=== PATIENT | male | born 1955 | race Caucasian/White ===

== ENCOUNTER 2024-10-12 16:14 | Emergency (ER) | payer MEDICARE, BC, SELFPAY ==
[2024-10-12] VITALS (11 sets, daily range): BP systolic 123–137; BP diastolic 74–83; PULSE 64–76; RESP 13–29; TEMP 36.2; O2SAT 91–97; BMI 41.5
--- NOTE | 2024-10-12 16:31 | ED.CHESTPAIN ---
HPI - Chest Pain General Chief Complaint: Chest Pain Stated Complaint: tightness in chest/shortness of breath Time Seen by Provider: 10/12/24 16:28 History of Present Illness HPI narrative: This 69-year-old male comes in reporting chest pain on and off over the past 3 or 4 months. He states that the pain is reproducible with exertion usually. He states if he walks far enough for ambulates up stairs he typically will feel some chest tightness and shortness of breath. He also states that he has episodes lasting a few minutes where he has the same symptoms despite exertion. 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 He states that he has been doing well since then up until about 4 months ago when he began having these symptoms. He did make a clinic appointment today but was sent here because of chest pain. He has not had any chest pain today however and currently is not having any symptoms. He does take a baby aspirin in the evening and is taking metoprolol and a cholesterol medicine. He does not report any nausea, vomiting, lightheadedness, or diaphoresis. Related Data Home Medications ?Medication ?Instructions ?Recorded ?Confirmed allopurinol 300 mg tablet 300 mg PO DAILY 10/12/24 10/12/24 aspirin 81 mg tablet 81 mg PO DAILY 10/12/24 10/12/24 atorvastatin 80 mg tablet 80 mg PO DAILY 10/12/24 10/12/24 cetirizine 10 mg tablet (Aller-Kaya) 10 mg PO DAILY PRN 10/12/24 10/12/24 metoprolol tartrate 25 mg tablet 25 mg PO DAILY 10/12/24 10/12/24 Previous Rx's ?Medication ?Instructions ?Recorded isosorbide mononitrate 30 mg 30 mg PO DAILY #30 tabs 10/12/24 tablet,extended release 24 hr Allergies Allergy/AdvReac Type Severity Reaction Status Date / Time Penicillins Allergy Intermediate Hives Verified 10/12/24 16:19 Review of Systems Status of ROS Reports: 10 or more systems reviewed and unremarkable except as noted in History and below Narrative Constitutional: No fevers, no weight gain or loss. Eyes: No discharge. No vision changes. HENT: No congestion, no sore throat, no ear pain. Cardiovascular: No palpitations. Chest tightness usually with exertion and sometimes independent of exertion. Respiratory: No wheezes, no cough. He feels short of breath at times when he is having chest tightness and pain. Gastrointestinal: No abdominal pain, no vomiting, no diarrhea. Genitourinary: No dysuria, no hematuria. Musculoskeletal: Normal range of motion. Skin: No rashes, no pruritis. Neurological: No dizziness, weakness, sensory change, speech change. Endo/Heme/Allergies: No bruising or bleeding. No polydipsia. Pysch: no suicidality, no anxiety, no insomnia. All other systems reviewed and are negative. Exam Narrative Exam Narrative: Constitutional: Well-developed, well-nourished, no acute distress. HEENT: Normocephalic, atraumatic. Neck: Normal range of motion. Nontender. Supple. Heart: Regular. No murmurs. Normal rate. Intact distal pulses. Lungs: Clear to auscultation. No chest discomfort. No wheezes, rhonchi, or rales. Abdomen: Normal bowel sounds. Nontender. No rebound tenderness. Genitalia: Deferred. Back: No midline tenderness. Normal range of motion. Extremities: Normal range of motion. No injury. Skin: Intact. No rash. Warm. No erythema or pallor. Neurologic: No altered sensation. No weakness. Alert and oriented. Psychiatric: No suicidality. No anxiety or depression. No insomnia. Nursing notes and vitals signs are reviewed. Const Vital Signs, click to edit/add: Vital Signs - 24 hr 10/12/24 16:20 10/12/24 16:45 10/12/24 17:00 Temperature 97.2 F L Pulse Rate 65 Pulse Rate [Pulse Oximeter] 76 Respiratory Rate 22 23 25 H Blood Pressure Blood Pressure [Right Upper Arm] 137/83 Pulse Oximetry 97 92 Oxygen Delivery Method Room Air 10/12/24 17:07 Temperature Pulse Rate 65 Pulse Rate [Pulse Oximeter] Respiratory Rate 23 Blood Pressure 123/74 Blood Pressure [Right Upper Arm] Pulse Oximetry 93 Oxygen Delivery Method Course Vital Signs Vital signs: Initial Vital Signs Temperature 97.2 F L 10/12/24 16:20 Temperature Source Temporal Artery Scan 10/12/24 16:20 Pulse Rate 76 10/12/24 16:20 Respiratory Rate 22 10/12/24 16:20 Blood Pressure 137/83 10/12/24 16:20 Blood Pressure Mean 101 10/12/24 16:20 Pulse Oximetry 97 10/12/24 16:20 Oxygen Delivery Method Room Air 10/12/24 16:20 Vital Signs Temperature 97.2 F L 10/12/24 16:20 Pulse Rate 76 10/12/24 16:20 Respiratory Rate 22 10/12/24 16:20 Blood Pressure 137/83 10/12/24 16:20 Pulse Oximetry 97 10/12/24 16:20 Oxygen Delivery Method Room Air 10/12/24 16:20 Temperature 97.2 F L 10/12/24 16:20 Pulse Rate 65 10/12/24 17:07 Respiratory Rate 23 10/12/24 17:07 Blood Pressure 123/74 10/12/24 17:07 Pulse Oximetry 93 10/12/24 17:07 Oxygen Delivery Method Room Air 10/12/24 16:20 MDM - Chest Pain MDM Narrative Medical decision making narrative: This patient comes in with reproducible chest discomfort as described above. He has a history of coronary artery disease and his symptoms are suspicious for acute coronary syndrome. His EKG and labs however returned with normal results. I did connect with the oncology radiation physician on-call at [facility], Dr. Aguilar, who will arrange for a sooner follow-up appointment there. They have the patient's information and will contact him. He recommended starting Imdur 30 mg to attend to his current symptoms. Lab Data Labs: Lab Results 10/12/24 10/12/24 Range/Units 16:40 16:45 WBC 7.10 (4.50-11.00) K/uL RBC 4.28 L (4.30-5.90) m/uL Hgb 13.1 L (13.5-17.5) gm/dL Hct 39.1 (37.0-53.0) % MCV 91 (80-100) fL MCH 31 (26-34) pg MCHC 34 (32-36) gm/dL RDW Coeff of Eva 13.5 (11.5-15.5) % Plt Count 152 (140-440) K/uL Neut % (Auto) 63.6 (42.0-72.0) % Lymph % (Auto) 25.5 (20-44) % Hooker % (Auto) 8.3 (0.0-11.0) % Eos % (Auto) 2.1 (0.0-7.0) % Baso % (Auto) 0.4 (0.0-3.0) % Neut # (Auto) 4.51 (1.7-7.0) K/uL Lymph # (Auto) 1.81 (0.90-2.90) K/uL Hooker # (Auto) 0.60 (0.00-0.90) K/UL Eos # (Auto) 0.15 (0.00-0.50) K/uL Baso # (Auto) 0.03 (0.00-0.30) K/uL Abs Immat Gran (auto) 0.01 (0.00-0.30) K/uL Imm/Tot Granulo (auto) 0.1 % Sodium 136 (135-149) mmol/L Potassium 4.1 (3.6-5.1) mmol/L Chloride 106 (96-114) mmol/L Carbon Dioxide 24 (20-32) mmol/L Anion Gap 6 L (7-15) mEq/L BUN 21 (7-30) mg/dL Creatinine 1.1 (0.5-1.5) mg/dL Estimated Creat Clear 55.58 Estimated GFR 72 ml/min Glucose 98 (60-115) mg/dL Calcium 9.5 (8.4-10.6) mg/dL POC Troponin I 0.04 (0.01-0.04) ng/ml ECG Data Attestation: I personally reviewed and interpreted this ECG as follows: Interpretation: Normal sinus rhythm. Rate is 70 beats per minute. There are no ST or T-wave abnormalities. Discharge Plan Discharge Clinical Impression: Acute coronary syndrome Patient Disposition: Home, Self-Care Condition: Stable Additional Instructions: Continue current medications and add Imdur as prescribed. Someone from cardiology clinic will contact you for follow-up arrangements. Return if worsening. Prescriptions: New isosorbide mononitrate 30 mg tablet extended release 24 hr 30 mg PO DAILY Qty: 30 2RF No Action atorvastatin 80 mg tablet 80 mg PO DAILY metoprolol tartrate 25 mg tablet 25 mg PO DAILY aspirin 81 mg tablet 81 mg PO DAILY cetirizine [Aller-Kaya] 10 mg tablet 10 mg PO DAILY PRN allopurinol 300 mg tablet 300 mg PO DAILY Follow Up/Referrals: Augusto Mott MD [Primary Care Provider, Family Practice] Stand Alone Forms: [employer] Info Instructions
[2024-10-12 16:52] LABS: Hematocrit 39.1 % (37.0-53.0); Hemoglobin* 13.1 gm/dL (13.5-17.5); Immature Granulocytes Abs Auto 0.01 K/uL (0.00-0.30); Immature Granulocytes Pct Auto 0.1 %; Lymphocytes Absolute Auto 1.81 K/uL (0.90-2.90); Mean Corpuscular HGB Conc 34 gm/dL (32-36); Mean Corpuscular Hemoglobin 31 pg (26-34); Mean Corpuscular Volume 91 fL (80-100); RDW Coefficient of Variation % 13.5 % (11.5-15.5); Red Blood Count 4.28 m/uL (4.30-5.90); White Blood Count* 7.10 K/uL (4.50-11.00)
[2024-10-12 16:53] LABS: Troponin, Point-of-Care* 0.04 ng/ml (0.01-0.04)
[2024-10-12 16:53] LABS: Slide Review Reflex No
--- OUTSIDE RECORDS SUMMARY | 2024-10-12 16:56 | XMS_ITS | Clinical Summary ---
Author Organization [facility] Address [address] [place] [id number] Care Team Providers Care Accounts Receivable Accountant Name Role Phone Augusto Mott MD Primary Care Provider Allergies Active Allergy Reactions Criticality Noted Date Comments Penicillins Hives 03/29/2006 Medications FISH OIL 1,000 MG CAPIndications:Oth er and unspecified hyperlipidemia take 2 caps once or twice daily by mouth 120 12 10/01/19 07 Active aspirin enteric coated 81 mg tablet Take 1 tablet by mouth once daily with a meal. 0 11/30/19 12 Active CPAPIndications:OS A (obstructive sleep apnea) CPAP machine for home use at pressure 9.4 cmw, full face mask x1/3month with a full face cushion x1/mo 1 Each 11 11/26/19 22 Active colchicine 0.6 mg tabletIndications: Idiopathic gout, unspecified chronicity, unspecified site Take 1 Tablet (0.6 mg) by mouth 2 times daily if needed for Gout Pain. 30 Tablet 2 04/08/19 23 Active EPINEPHrine (EPIPEN) 0.3 mg/0.3 mL auto-injectorIndic ations:Allergic reaction, initial encounter Inject 0.3 mg intramuscular one time if needed for Allergic Reaction (difficulty breathing). 2 Each 4 01/11/20 23 Active miscellaneous medical supply miscIndications:OS A (obstructive sleep apnea) silicone gasket and filters for his CPAP [facility] 1 unit 3 01/04/20 24 Active allopurinoL (ZYLOPRIM) 300 mg tabletIndications: Idiopathic gout, unspecified chronicity, unspecified site Take 1 Tablet (300 mg) by mouth once daily. 90 Tablet 3 02/02/20 24 Active atorvastatin (LIPITOR) 80 mg tabletIndications: S/P CABG (coronary artery bypass graft),Hypertensio n Take 1 Tablet (80 mg) by mouth once daily. 90 Tablet 3 02/02/20 24 Active metoprolol tartrate (LOPRESSOR) 25 mg tabletIndications: S/P CABG (coronary artery bypass graft),Hypertensio n Take 1 Tablet (25 mg) by mouth two times daily. 180 Tablet 3 02/02/20 24 Active nitroglycerin (NITROSTAT) 0.4 mg sublingual tabletIndications: S/P CABG (coronary artery bypass graft) Place 1 tablet under the tongue every 5 minutes if needed for chest pain. If patient requesting > 24 doses in 30D, to provider to authorize 25 Tablet 5 02/02/20 24 Active Active Problems Problem Noted Date Diagnosed Date Obesity, morbid 12/22/2021 Adenomatous colon polyp 02/26/2020 Overview (02/28/2020): Benign; repeat colonoscopy in 5 years. MILADIS 08/02/2005 PSG 11/07/2018 Sessile colonic polyp 05/19/2014 S/P CABG (coronary artery bypass graft) 05/21/19 11 Overview (05/21/2010): 05/20/10: S/p Coronary artery bypass x3. Left internal mammary artery to left anterior descending, saphenous vein to obtuse marginal one, saphenous vein to posterior descending branch of right by Dr. Mccauley. Coronary artery disease 05/20/2010 Obstructive sleep apnea 05/20/2010 Chest discomfort 05/19/2010 Hyperlipidemia 05/19/2010 Abnormal cardiovascular stress test 05/19/2010 Overview (05/19/2010): - anterior wall ischemia Family history of ischemic heart disease 011 Other and unspecified hyperlipidemia 09/20/2006 HAYFEVER 03/29/2006 Overview (03/29/2006): SPRINGTIME Polyp of colon Gout Encounters Date Type Department Care Team Description 10/12/2024 Telephone [facility] [address] [place] [address] Tiff Newton, DO Appointment 10/12/[address] [facility] [address] [place] [address] Tiff Newton, DO Error-please disregard 10/11/[address] [facility] [address] [place] [address] Augusto Mott MD Chest Pain from Last 3 Months Immunizations Immunization Administration Dates Next Due COVID-19 vaccine (TRUE linkswear 30mcg/0.3mL) P FMDV 03/16/2021 Hepatitis A (Adult) 01/26/2006,07/09/2005 Influenza, IIV3 (Age >=3 years) 02/04/2013,05/22 Influenza, IIV4 12/18/2015,01/03/2014 Pneumococcal Poly,23-Valent (Pneumovax) 11/07/19 21,05/22/2010 Pneumococcal conj 13-Valent (Prevnar 13) 019 Td (Age >=7 Years) 05/20/2001,02/02/1991 Tdap 06/29/2011 Zoster (Zostavax-ZVL, live) 09/18/2014 Family History Medical History Relation Name Comments Hyperlipidemia Brother 1 CABG Heart Disease Brother 2 Heart attack Brother 2 Throat cancer Brother 3 Other Brother 4 Did not wake up from sleep Cancer-colon Father ??? AND LIVER Diabetes Mother Heart Disease Mother ASCVD Heart Disease Sister 1 Relation Name Status Comments Brother 1 Brother 2 Brother 3 Brother 4 Father (Age 76) Mother (Age 67) Sister 1 Sister 2 Alive Sister 3 Alive Social History Tobacco Use Types Packs/Day Years Used Date Smoking Tobacco: Former Cigarettes Q uit: 03/28/1983 Smokeless Tobacco: Never Tobacco Cessation:Counseling Given: Yes Comments:Exposed to 2nd hand smoke Alcohol Use Standard Drinks/Week Comments Yes 1.7 (1 standard drink = 0.6 oz p ure alcohol) occl drink PHQ-2 Answer Date Recorded PHQ-2 TOTAL SCORE 0 02/02/2024 Social Connections Answer Date Recorded Do you often feel lonely or isolated from those around you? 0 06/29/2024 Financial Resource Strain Answer Date R ecorded Difficulty of Paying Living Expenses 3 06/28/2024 Difficulty of Paying Living Expenses Not on file 06/28/2024 Food Insecurity Answer Date Recorded Do you worry your food will run out before you are able to buy more? 1 06/29/2024 Transportation Needs Answer Date Record ed Does lack of transportation keep you from medica l appointments? 1 06/29/2024 Does lack of transportation keep you from work, meetings or getting things that you need? 1 06/29/2024 Housing Stability Answer Date Recorded What is your housing situation today? 1 06/29/2024 Interpersonal Safety Answer Date Record ed Are you being hit, kicked, p ushed or yelled at (see row info)? No 06/20/2023 Interpersonal Safety Abuse 12 - 18 Not on file 06/20/2023 Interpersonal Safety Ambulatory Vulnerability No t on file 06/20/2023 Utilities Answer Date Recorded Do you have trouble paying f or utilities (for example, heat, electricity, water, phone)? 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 on file Not on file Obstetrics History Last Filed Vital Signs Vital Sign Reading Time Taken Comments Blood Pressure 126/70 06/29/2024 8:57 AM CDT Pulse 63 06/29/2024 8:57 AM CDT Temperature 36.9 C (98.4 F) 06/20/2023 10:16 AM CDT Respiratory Rate 18 06/20/2023 10:16 AM CDT Oxygen Saturation 96% 06/29/2024 8:57 AM CDT Inhaled Oxygen Concentration - - Weight 119.1 kg (262 lb 8 oz) 06/29/2024 8:57 AM CDT Height 167.6 cm (5' 6) 06/29/2024 8:57 AM CDT Body Mass Index 42.37 06/29/2024 8:57 AM CDT Plan of Treatment Health Maintenance Due Date Last Done Comments RSV vaccine for adults or (1 - Risk 60-74 years 1-dose series) 2013 Zoster (shingles) series for age 50+ (2 of 3) 11/13/2014 09/18/2014 Tetanus booster 06/28/2021 06/29/2011, 04/29, 02/02/1991 COVID-19 vaccine series ( season) 2023 03/16/2021, 06/26/2020, 06/02/2020 Influenza Vaccine (#1) 2024 6, 01/03/2014, 02/04/2013, Additional history exists Depression screening for age 12+ 02/01/2025 02/02/2024, 01/04/2024, 01/10/2023, Additional history exists Medicare Wellness for age 65+ 02/02/2025 02/02/2024, 01/10/2023, 12/21/2021, Additional history exists Colonoscopy through age 75 02/25/202502/25, 11/13/2014, 11/13/2014, Additional history exists BMI (ht and wt on same day) for age 18+ 06/29/2025 06/29/2024, 02/02/2024, 08/08/2023, Additional history exists Lipids for age 45-75 02/01/2029 02/02/2024, 01/10/2023, 12/21/2021, Additional history exists Hepatitis C screening for age 18-79 Completed 01/09/2020 Pneumococcal series for age 50+ Completed 11/06/2020, 09/05/2018, 05/22/2010 AAA screening age 65-74 Completed 02/13/20 24, 01/08/2011, 01/06/2011 Hepatitis B series for 19+ Aged Out N o longer eligible based on patient's age to complete this topic Procedures Procedure Name Priority Date/Time Associated Diagnosis Comments US ABD AORTA SCREENING Routine 02/13/2024 7:47 AM MAINTENANCE HELPER UTILITY ENGINEER Screening for AAA (aortic abdominal aneurysm) LIPID PANEL W REFLEX MEASURED LDL Routine 02/02/2024 11:26 AM MAINTENANCE HELPER UTILITY ENGINEER Mixed hyperlipidemia COLONOSCOPY 02/26/2020 8:50 AM MAINTENANCE HELPER UTILITY ENGINEER ANTI HCV Routine 01/09/2020 12:05 PM CDT Encounter for hepatitis C screening test for low risk patient from Last 3 Months or Most Recently Relevant to Health Maintenance Results * US ABD AORTA SCREENING [[id number]] (02/13/2024 7:47 AM MAINTENANCE HELPER UTILITY ENGINEER) Anatomical Region Laterality Modality Abdomen, AORTA Ultrasound 02/13/2024 8:17 AM MAINTENANCE HELPER UTILITY ENGINEER Impressions 02/13/2024 8:17 AM MAINTENANCE HELPER UTILITY ENGINEER No abdominal aortic aneurysm. Dictated by Timothy Lockwood MD @ 02/13/2024 8:17:35 AM (Electronically Signed) Narrative 02/13/2024 8:17 AM MAINTENANCE HELPER UTILITY ENGINEER For Patients: As a result of the Cures Act, medical imaging exams and procedure reports are released immediately into your electronic medical record. You may view this report before your referring provider. If you have questions, please contact your health care provider. INDICATION: Screening for abdominal aortic aneurysm. TECHNIQUE: Ultrasound aorta with color Doppler analysis. COMPARISON: None. FINDINGS: The proximal abdominal aorta measures 2.8 cm, mid aorta measures 2.8 cm, distal aorta measures 1.9 cm, right common iliac artery measures 1.1 cm, and the left common iliac artery measures 1.1 cm. There are no periaortic abnormalities evident. Procedure Note Timothy Lockwood MD - 02/13/2024 For Patients: As a result of the Cures Act, medical imagingexams and procedure reports are released immediately into your electronicmedical record. You may view this report before your referring provider.If you have questions, please contact your health care provider. INDICATION: Screening for abdominal aortic aneurysm. TECHNIQUE: Ultrasound aorta with color Doppler analysis. COMPARISON: None. FINDINGS: The proximal abdominal aorta measures 2.8 cm, mid aorta measures 2.8 cm,distal aorta measures 1.9 cm, right common iliac artery measures 1.1 cm,and the left common iliac artery measures 1.1 cm. There are no periaorticabnormalities evident. IMPRESSION: No abdominal aortic aneurysm. Dictated by Timothy Lockwood MD @ 02/13/2024 8:17:35 AM (Electronically Signed) Augusto Mott MD US Final R esult * (ABNORMAL) LIPID PANEL W REFLEX MEASURED LDL (02/02/2024 11:26 AM MAINTENANCE HELPER UTILITY ENGINEER) CHOLESTEROL, TOTAL 169 <200 mg/dL [facility] HDL CHOLESTEROL 40 > OR = 40 mg/dL [facility] TRIGLYCERIDES 197(H) <150 mg/dL [facility] LDL-CHOLESTEROL 100(H) mg/dL (calc) [facility] Comment: Reference range: <100 Desirable range <100 mg/dL for primary prevention; <70 mg/dL for patients with CHD or diabetic patients with > or = 2 CHD risk factors. LDL-C is now calculated using the Jose De Jesus-Shira calculation, which is a validated novel method providing better accuracy than the Friedewald equation in the estimation of LDL-C. Jose De Jesus STEEL et al. JEANNIE. 2013;310(19): 5591-3617 (http://education.[employer]/faq/SOQ823) CHOL/HDLC RATIO 4.2 <5.0 (calc) [facility] NON HDL CHOLESTEROL 129 <130 mg/dL (calc) [facility] Comment: For patients with diabetes plus 1 major ASCVD risk factor, treating to a non-HDL-C goal of <100 mg/dL (LDL-C of <70 mg/dL) is considered a therapeutic option. Blood BLOOD SPECIMEN / Unknown 02/02/2024 11:26 AM MAINTENANCE HELPER UTILITY ENGINEER 02/02/2024 11:27 AM MAINTENANCE HELPER UTILITY ENGINEER Augusto Mott MD CHEMISTRY Final R esult GI Track [facility] [address] [place] [address], [facility] [address] [place] [address] * COLONOSCOPY (02/26/2020 8:50 AM MAINTENANCE HELPER UTILITY ENGINEER) 02/26/2020 8:50 AM MAINTENANCE HELPER UTILITY ENGINEER Narrative Transcriptions Pedro Reece, - 02/26/2020 10:07 AM CST Patient Name: Fabian Brower Procedure Date: 02/26/2020 Gender: Male Date of : 1955 Admit Type: Ambulatory Procedure: Colonoscopy Proceduralist: Pedro Reece MD [facility] Indications/Pre-Op Diagnosis: High risk colon cancer surveillance:Personal history of colonic polyps, Family history of colon cancer in a first-degree relativebefore age 60 years, Last colonoscopy 5 years ago Medications: Propofol per Anesthesia Procedure Description: The patient had risks, benefits and alternatives explained to andgave informed consent. The patient had a stable cardiopulmonary status and judged an adequate candidate for conscious sedation. The colonoscope was passed through the anus and advanced to thececum, identified by appendiceal orifice and ileocecal valve. Thecolonoscopy was performed without difficulty. The patient tolerated the procedure well. The quality of the bowel preparation was good. The ileocecal valve, appendiceal orifice, and rectum were photographed. Complications: No immediate complications. Estimated Blood Loss & Specimen: Estimated blood loss: none. Specimen collected - Yes and sent to Laboratory Findings: A 4 mm polyp was found in the ascending colon. The polyp was sessile. The polyp was removed with a hot snare. Resection and retrieval were complete. Verification of patient identification for the specimen was done. Estimated blood loss was minimal. Non-bleeding internal hemorrhoids were found during retroflexion. The hemorrhoids were Grade I (internal hemorrhoids that do notprolapse). Impressions/Post-Op Diagnosis: - One 4 mm polyp in the ascending colon, removed with a hot snare. Resected and retrieved. - Non-bleeding internal hemorrhoids. Recommendation: - Discharge patient to home. - Patient has a contact number available for emergencies. The signsand symptoms of potential delayed complications were discussed with the patient. Return to normal activities tomorrow. Written discharge instructions were provided to the patient. - High fiber diet. - Continue present medications. - Await pathology results. - Repeat colonoscopy in 5 years for surveillance. Moderate Sedation: Moderate (conscious) sedation was personally administered by an anesthesia professional. The following parameters were monitored:oxygen saturation, heart rate, blood pressure, and response to care. Pedro Reece MD 02/26/2020 10:07:30 AM This report has been signed electronically. Note Initiated On: 02/26/2020 8:50 AM Pedro Reece DO PROCEDURE ORD Fi nal Result * ANTI HCV (01/09/2020 12:05 PM CDT) HEPATITIS C ANTIBODY Non-React nicolas Non-React nicolas 01/09/2020 9:23 PM CDT [facility] Comment:Antibodies to HCV no t detected; does not exclude the possibility of exposure to HCV. Blood BLOOD SPECIMEN / Unknown Butterfly / Unknown 01/09/2020 12:05 PM CDT 01/09/2020 12:08 PM CDT Augusto Mott MD SEND OUTS Final R esult [facility] [address] [place] [address], [place] from Last 3 Months or Most Recently Relevant to Health Maintenance Insurance MEDICARE PART B HB ONLY [place] ONLY MEDICARE PART A HB ONLY [place] WC WORKERS COMP WC WORK[employer] COMP [facility] Member Subscriber Plan / Payer (Ef fective 2013-Present) Name:Fabian Brower Relation to Subscriber:Employee Name:[employer] Date of :2002 (Home) (Work) Address: [address] [place] [id number] Payer ID:Not on file Group ID:Not on file Type:Not on file Address: [facility] C/O [facility] LFS ([employer] [facility] [address] [place] [id number] [facility] * Guarantor: [facility] [employer] Account Type Relation to Patient Date of Phone Billing Address Occ Health/Memo Other [address] [id number] [place] [address] Advance Directives Documents on File Type Date Recorded Patient Production Control Expert Expl anation Healthcare Directive 09/18/2014 2:12 PM HE ALTHCARE DIRECTIVE, 12/05/2013 * Full Code (Latest Code Status on File) Date Activated Date Inactivated Comments 02/26/2020 7:42 AM 02/26/2020 12:19 PM Question Answer Comments Code Status Discussion: Discussed * Full Code Date Activated Date Inactivated Comments 12/24/2013 2:01 PM 12/24/2013 6:43 PM * Full Code Date Activated Date Inactivated Comments 12/24/2013 12:17 PM 12/24/2013 2:01 PM * Full Code Date Activated Date Inactivated Comments 05/19/2010 12:21 PM 05/25/2010 3:33 PM Care Teams Accounts Receivable Accountant Relationship Specialty Start Date End Date Augusto Mott MD [address] [place] [address] PCP - General 12/18/13
[2024-10-12 17:02] LABS: Chloride* 106 mmol/L (96-114); Potassium* 4.1 mmol/L (3.6-5.1); Sodium* 136 mmol/L (135-149)
[2024-10-12 17:05] LABS: Anion Gap 6 mEq/L (7-15); Blood Urea Nitrogen* 21 mg/dL (7-30); Calcium* 9.5 mg/dL (8.4-10.6); Carbon Dioxide* 24 mmol/L (20-32); Creatinine* 1.1 mg/dL (0.5-1.5); Est. Creatinine Clearance* 55.58; Estimated Glomerular Filt Rate 72 ml/min; Glucose* 98 mg/dL (60-115)
== END 2024-10-12 18:30 | disposition home or self-care (01) ==
PROVIDERS: Emergency Provider Emergency Medicine Emergency Medical Services; PCP Family Medicine
DX: I24.9 Acute ischemic heart disease, unspecified (principal); R07.9 Chest pain, unspecified; R06.02 Shortness of breath
CPT/HCPCS: 36415; 80048; 84484; 85025; 93005; 99284